=== PATIENT | female | born 1960 | race Caucasian/White ===

== ENCOUNTER 2023-09-02 07:34 | Emergency (ER) | payer BC, SELFPAY ==
[2023-09-02 07:41] VITALS: BP 138/88
[2023-09-02 07:56] VITALS: BMI 34.6
--- NOTE | 2023-09-02 08:04 | ED.GENMED ---
History of Present Illness
General
Chief Complaint: DVT/Possible Blood Clot
Time Seen by Provider: 09/02/23 08:02
Travel History
Have you had any contact with someone who has COVID-19?: No
Do you have any symptoms of coronavirus? Fever > 100 degrees, chills, cough, shortness of breath, sore throat, loss of taste or smell, muscle aches, or headache?: No
History of Present Illness
History of Present Illness:
HPI: Patient presents due to left calf pain that started 2 days ago associated with some increased swelling yesterday. She primarily locates the discomfort and area of concern to the posterior lateral aspect of the left. She was concerned because
her [id number] has a history of a blood clot. The patient reports no shortness of breath and she has no history of heart failure. She denies any injury to the knee. She denies any left foot pain.
EXAM:
GENERAL: Well appearing in no distress
HEENT: Moist oral mucosa
CARDIOVASCULAR: No murmurs, normal heart rate and rhythm, No chest wall tenderness
PULMONARY: No respiratory distress, breath sounds are clear and equal
ABDOMEN: Soft with no peritoneal signs, no tenderness
NEUROLOGIC: Excellent strength all extremities, no coordination deficits
PSYCHIATRIC: Appropriate mental status, normal insight and judgement
EXTREMITIES: Some mild tenderness noted to the popliteal region of the left knee, trace left lower extremity edema, moves all extremities equally, there is good perfusion of the left foot
SKIN: No rash, no lesions
ED COURSE:
8:30 AM: I initially evaluated patient
NUMBER AND COMPLEXITY OF PROBLEMS ADDRESSED AT THE ENCOUNTER
� Chronic conditions affecting care: High blood pressure, hyperlipidemia, anxiety
� Acute Exacerbation and/or Progression of Chronic Illness: This is an acute problem
� Differential Diagnosis includes: Knee strain/sprain, Worthy's cyst, DVT, lymphedema, venous insufficiency
AMOUNT AND/OR COMPLEXITY OF DATA TO BE REVIEWED AND ANALYZED
� I performed an independent evaluation of and my interpretation is:
EKG:
CT:
X-rays:
Laboratory Studies:
Other: I personally reviewed ultrasound images�agree with radiologist interpretation there is no evidence for DVT
� Review of other/old records: Patient had an echo 2 months ago that showed an EF of 60 to 65% with normal wall motion and no valvular disease and normal diastolic function
� Clinical information was obtained by an independent historian: None needed
� Prescriptions/Medications Considered but not given:
� Further testing considered but not performed:
RISK OF COMPLICATIONS AND/OR MORBIDITY OR MORTALITY OF PATIENT MANAGEMENT
� Social determinants of health affecting care: Lives at home
� Discussion with other providers:
� Escalation of care including admission/observation vs risk of discharge considered: The patient had an ultrasound which shows no evidence of DVT. Recommended trying to keep the leg elevated. I reassessed patient prior to
discharge at 10:15 AM and the patient has no further concerns. Recommend to keep the leg elevated.
Past History
Past History
ED Past Medical History: Asthma, HTN, Hypercholesterolemia and Psychiatric
ED Past Surgical History: Gynecological (Hysterectomy)
Social History
Tobacco: Former smoker
Phy Exam
Physical Exam
Physical Exam:
See HPI
Course
Orders/Labs/Results
Orders:
Orders
09/02/23 07:44
US Periph Venous LOWER Ext LT Urgent
Comment:
Reason For Exam: left lower leg pain
Vital Signs
Initial and Last Documented VS:
Initial Vital Signs
Temp Pulse Resp BP Pulse Ox
98.3 F 98 16 138/88 98
09/02/23 07:41 09/02/23 07:41 09/02/23 07:41 09/02/23 07:41 09/02/23 07:41
Last Documented Vital Signs
Temp Pulse Resp BP Pulse Ox
98.3 F 98 16 138/88 98
09/02/23 07:41 09/02/23 07:41 09/02/23 07:41 09/02/23 07:41 09/02/23 07:41
*Critical Care Note
Total Time (30-74mins, 75-104mins- exclusive of procedures): Not Applicable
ED Attending Note
-
Portions of this chart may have been created with voice recognition software.� Occasional wrong word or��sound alike� substitutions may have occurred due to the inherent limitations of voice recognition software.
Discharge Plan
Departure
Patient Disposition: Home (Routine Discharge)
Date of Disposition: 09/02/23
Time of Disposition: 10:10
Patient with high blood pressure during this ER visit?: Yes
Discharge Problem:
Swelling of left lower extremity
Instructions: Swelling
Referrals:
Aaliyah Ferro CRNP [Family Provider] -
Activity Restrictions/Additional Instructions:
The ultrasound of the left lower extremity shows no blood clots. Follow-up your primary care doctor. Try to keep the legs elevated is much as possible.
Interventions
Interventions:
*Risk Screen - Suicide Last Done: 09/02/23 07:56
*General Assessment Last Done: 09/02/23 07:56
*Neglect/Abuse Screening Last Done: 09/02/23 07:56
ED- Fall Risk Assessment Last Done: 09/02/23 08:00
*ED COVID-19 Vaccine History Last Done: 09/02/23 07:41
ED- Cardiac Assessment Last Done: 09/02/23 08:00
ED- Pulmonary Assessment Last Done: 09/02/23 08:00
ED-Peripheral Vascular Assessment Last Done: 09/02/23 07:56
ED-Skin Assessment Last Done: 09/02/23 07:56
== END 2023-09-02 10:56 | disposition home or self-care (01) ==
LOC: EMR 07:34
PROVIDERS: EMERGENCY PHYSICIAN Emergency Medicine; FAMILY PHYSICIAN Nurse Practitioner
DX: M79.662 Pain in left lower leg (principal); M79.89 Other specified soft tissue disorders; I10 Essential (primary) hypertension; E78.00 Pure hypercholesterolemia, unspecified; F41.9 Anxiety disorder, unspecified; Z87.891 Personal history of nicotine dependence
CPT/HCPCS: 99284; 93971